=== PATIENT | male | born 1945 | race Caucasian/White ===

== ENCOUNTER → 2019-12-09 09:20 | Outpatient (BNVA) | payer MEDICARE, OTHER, SELFPAY | PROVIDERS: Family Provider Internal Medicine; PCP Internal Medicine; Visit Provider Urology | DX: R31.29 Other microscopic hematuria (principal); N40.1 Benign prostatic hyperplasia with lower urinary tract symptoms; N13.8 Other obstructive and reflux uropathy; N41.0 Acute prostatitis | CPT/HCPCS: 81001 ==

== ENCOUNTER 2020-01-19 07:31 | Outpatient (CLI) | payer MEDICARE, OTHER, SELFPAY ==
--- NOTE | 2020-01-19 07:36 | CT_ITS ---
WS: [id number] CT LUNG CANCER SCREENING DLP: 87.45 mGy.cm DIvol: 2.57 mGy CLINICAL INFORMATION SCREENING VISIT: Baseline COMPARISON: None available. FINDINGS Diagnostic quality: Satisfactory. Motion artifact at the lung bases. Comments: None. Lung Nodules: Noncalcified round 3 mm nodule periphery RIGHT upper lobe, image 39 of series 2. There is mild motion artifact at the lung bases into the hilar regions causing some limitations. Lungs: Chronic emphysema with no pneumonia. There is pleural thickening in the posterior RIGHT upper lobe. Linear scar RIGHT upper lobe image 59 series 2. Benign thickening along the short fissure. Heart: Cardiac chamber size is top normal. Increased pericardial fat deposition. There is heavy calci fication in the LEFT anterior descending coronary artery. There could be a cardiac stent present. No pericardial effusion. Other findings: Mildly ectatic aorta. No mediastinal or hilar adenopathy. Benign calcifications at th e RIGHT hilum. Small hiatal hernia. Increase in thoracic kyphosis. CT/CT lung screening [id number] IMPRESSION: LUNG-RADS: 2S-Benign Appearance or Behavior with Significant Findings FOLLOW UP: 12 Month: Continue annual screening with LDCT 1. Moderate coronary artery atherosclerosis. 2. Study limited by breathing motion artifact. 3. Minor fissure thickening is probably a pulmonary lymph node 4. 3 mm solid nodule RIGHT upper lobe.
== END 2020-01-19 07:32 | disposition home or self-care (01) ==
PROVIDERS: Family Provider Internal Medicine; PCP Internal Medicine; Visit Provider Internal Medicine
DX: Z12.2 Encounter for screening for malignant neoplasm of respiratory organs (principal); F17.210 Nicotine dependence, cigarettes, uncomplicated; I25.10 Atherosclerotic heart disease of native coronary artery without angina pectoris; R91.8 Other nonspecific abnormal finding of lung field
CPT/HCPCS: G0297

== ENCOUNTER → 2020-04-11 14:38 | Outpatient (BNVA) | payer MEDICARE, OTHER, SELFPAY | PROVIDERS: Family Provider Internal Medicine; PCP Internal Medicine; Visit Provider Nurse Practitioner Family | DX: N13.8 Other obstructive and reflux uropathy (principal); N40.1 Benign prostatic hyperplasia with lower urinary tract symptoms; N41.9 Inflammatory disease of prostate, unspecified; N41.1 Chronic prostatitis; N28.1 Cyst of kidney, acquired | CPT/HCPCS: 81001 ==